=== PATIENT | female | born 1995 | race Caucasian/White ===

== ENCOUNTER 2018-12-15 14:17 | Inpatient (IN) | payer OTHER ==
[~2018-12-15] VITALS: Ht 152.4 cm; Wt 90.7 kg
--- NOTE | ~2018-12-15 | CON ---
[address] [address] CONSULTATION Name: YOSI WATTERS Room: [address] IN .R.#: [id number] Admission: 12/15/18 Attend Phys: Victorino Castillo DO Discharge: Date of : 93 Report #: [id number] THIS REPORT FOR: //name// CC: Vicotrino BRUNO physician/PCP DATE OF SERVICE: 12/16/2018 HISTORY OF PRESENT ILLNESS: This is a pleasant 23-year-old female with no significant past medical history who is presenting for right upper quadrant abdominal pain. The patient reports the pain began a few days back and is located in the right upper quadrant, nonradiating. The patient reports the pain is worse with eating and was not moving around and reports subjective sensation of fever and chills. The patient denies similar episodes in the past and has no other known medical problems. PAST SURGICAL HISTORY: Nonsignificant. PAST MEDICAL HISTORY: Nonsignificant. SOCIAL HISTORY: The patient denied smoking, alcohol or recreational drug use. FAMILY HISTORY: There is no family history of colon cancer or Banda related neoplasia. REVIEW OF SYSTEMS: Comprehensive 10-point review of systems is negative except for what is mentioned in the HPI. PHYSICAL EXAMINATION: VITAL SIGNS: Temperature 36.9, pulse rate 95, respirations 14, blood pressure 121/75. GENERAL: The patient is alert, awake, oriented x 3. HEENT: Pupils are equal, round, reactive to light and accommodation. Mucous membranes are moist. There is no congestion. LUNGS: Clear to auscultation bilaterally. CARDIOVASCULAR: Rate and rhythm regular, S1, S2 present. ABDOMEN: Soft. There is tenderness and mild guarding in the right upper quadrant region. EXTREMITIES: Warm, well perfused, no edema. LABORATORY DATA: Hemoglobin 11.1, hematocrit 33.4, platelet count 287. WBC count 10.9. Sodium 140, potassium 3.6, chloride 106, bicarbonate 25, BUN 8, creatinine 0.6, total bilirubin 1.5, AST 133, ALT 111, alkaline phosphatase 200. IMAGING: MRCP abdomen basically demonstrates a large gallstone in the gallbladder neck measuring 2.0 cm with gallbladder distention, gallbladder wall [facility] [address] [place] [address] CONSULTATION Name: YOSI WATTERS Room: [address] IN [facility]#: [id number] Admission: 12/15/18 Attend Phys: Victorino Castillo, Discharge: Date of : 93 Report #: [id number] thickening and pericholecystic edema consistent with acute cholecystitis. Curvilinear ____ the anterior wall of the gallbladder raises the possibility of gangrenous cholecystitis. No abnormal biliary ductal dilation. No evidence of choledocholithiasis. ASSESSMENT AND PLAN: Pleasant 23-year-old female who is presenting with severe right upper quadrant pain, found to have acute cholecystitis. Although the bilirubin is elevated, there is no evidence of acute biliary obstruction or choledocholithiasis. I would recommend surgical evaluation for cholecystectomy at this time. No endoscopic evaluation is warranted. Thank you for this consultation. By: [id number] Reveles MD /nt
[2018-12-15 14:37] VITALS: BP 153/89
[2018-12-15 14:45] LABS: URINE BILIRUBIN NEGATIVE (Negative); URINE BLOOD TRACE (Negative); URINE CLARITY CLEAR; URINE COLOR YELLOW; URINE GLUCOSE-RANDOM NEGATIVE (Negative); URINE KETONES NEGATIVE (Negative); URINE LEUKOCYTES-REFLEX NEGATIVE (Negative); URINE NITRITE-REFLEX NEGATIVE (Negative); URINE PROTEIN TRACE (Negative); URINE SPECIFIC GRAVITY >= 1.030 (1.005-1.030); URINE UROBILINOGEN 0.2 E.U./dl (0.2-1.0)
[2018-12-15 14:55] LABS: ABSOLUTE EOSINOPHILS 0.1 thou/uL (0.0-0.7); ABSOLUTE LYMPHOCYTES 1.2 thou/uL (0.8-5.3); ABSOLUTE NEUTROPHILS 12.5 thou/uL (1.6-8.1); BASOPHILS 0.2 %; EOSINOPHILS 0.8 %; HEMATOCRIT 37.8 % (37.0-47.0); HEMOGLOBIN 12.6 gm/dL (12.0-15.0); MCHC 33.3 g/dL (28.0-37.0); MCV 86.9 fL (80.0-100.0); MONOCYTES 6.8 %; MPV 8.3 fl. (7.2-11.1); NUCLEATED RBCS 0 /100WBC; PLATELET COUNT* 331 thou/uL (150-400); POLYS 84.2 %; RBC 4.35 mil/uL (4.20-5.00); RDW-CV 13.2 % (10.5-14.5); WBC 14.9 thou/uL (4.0-11.0)
[2018-12-15 15:12] LABS: PROTIME 10.2 Seconds (9.20-11.50)
[2018-12-15 15:18] LABS: CALCIUM 9.5 mg/dL (8.5-10.1); CREATININE 0.6 mg/dL (0.6-1.3); POTASSIUM 3.8 mmol/L (3.5-5.1)
[2018-12-15 15:23] LABS: ALBUMIN 3.3 g/dL (3.4-5.0); TOTAL BILIRUBIN 1.1 mg/dL (<0.1-1.0); TOTAL PROTEIN 8.2 g/dL (6.4-8.2)
[2018-12-15 17:38] VITALS: BP 122/68
[2018-12-15 18:08] VITALS: BP 126/92
--- NOTE | 2018-12-15 18:19 | NUR ---
PT ALERT AND ORIENTED. PT ADMITTED WITH ACUTE CHOLECYSTITIS. PT IS ON ROOM AIR. PULSES 2+. UP AD QUINN. BM TODAY. VOIDING WITHOUT ISSUE. PAIN MANAGED WITH PAIN MEDS. LT AC IV WITH NS AT 100 AND ZOSYN RUNNING. AFEBRILE AT THIS TIME. PT NPO. SURGERY SAW PT IN ROOM. FALL RISK PRECAUTIONS IN PLACE. HOURLY ROUNDING COMPLETED. WILL CONTINUE TO MONITOR.
[2018-12-15 21:30] VITALS: BP 138/86
[2018-12-16 04:00] VITALS: BP 157/86
--- NOTE | 2018-12-16 06:56 | NUR ---
PATIENT SLEPT PART OF THE NIGHT. PATIENT WAS GIVEN PAIN MEDICINE ONCE THIS SHIFT WITH GOOD RELIEF. PATIENT REMAINS NPO PER ORDERS. IV FLUIDS AND ANTIBIOTICS WERE GIVEN ORDERED. WILL CONTINUE TO MONITOR.
[2018-12-16 07:22] LABS: ABSOLUTE EOSINOPHILS 0.2 thou/uL (0.0-0.7); ABSOLUTE LYMPHOCYTES 1.1 thou/uL (0.8-5.3); ABSOLUTE MONOCYTES 0.8 thou/uL (0.0-1.2); ABSOLUTE NEUTROPHILS 8.9 thou/uL (1.6-8.1); BASOPHILS 0.2 %; EOSINOPHILS 1.5 %; HEMATOCRIT 33.4 % (37.0-47.0); HEMOGLOBIN 11.1 gm/dL (12.0-15.0); LYMPHOCYTES 9.9 %; MCH 29.2 pg (26.0-34.0); MCHC 33.3 g/dL (28.0-37.0); MCV 87.5 fL (80.0-100.0); MONOCYTES 7.3 %; MPV 8.3 fl. (7.2-11.1); NUCLEATED RBCS 0 /100WBC; PLATELET COUNT* 287 thou/uL (150-400); POLYS 81.1 %; RBC 3.82 mil/uL (4.20-5.00); RDW-CV 13.3 % (10.5-14.5); WBC 10.9 thou/uL (4.0-11.0)
[2018-12-16 07:35] LABS: ALBUMIN 2.7 g/dL (3.4-5.0); CALCIUM 8.4 mg/dL (8.5-10.1); CREATININE 0.6 mg/dL (0.6-1.3); POTASSIUM 3.6 mmol/L (3.5-5.1); TOTAL BILIRUBIN 1.5 mg/dL (<0.1-1.0)
[2018-12-16 07:55] VITALS: BP 129/72
--- NOTE | 2018-12-16 14:03 | EKG ---
[place] [address] ELECTROCARDIOGRAM REPORT Name: YOSI WATTERS Room: [address] ADM IN M.R.#: [id number] Admission: 12/15/18 Attend Phys: Victorino Castillo DO Discharge: Date of : 93 Report #: [id number] THIS REPORT FOR: //name// [facility] ED Test Date: 2018-12-15 Test Time: 15:11:12 Pat Name: YOSI WATTERS Department: Room: [facility] Gender: F Short Story Writer: GENA : 1995 Requested By: Jocelynn Dimas Order Number: [id number] MD: Ja Gonzales Measurements Intervals [place] Rate: 98 P: 13 NV: 148 QRS: 6 QRSD: 83 T: 14 QT: 324 QTc: 414 Interpretive Statements Sinus rhythm No previous ECG available for comparison Electronically Signed On 12-16-2018 14:03:01 CDT by Ja Gonzales [email or web address] <ELECTRONICALLY SIGNED> By: Ja Gonzales MD, [facility] 12/16/18 1403 1511 1511 Ja Gonzales MD, FACC /EPI
--- NOTE | 2018-12-16 15:54 | NUR ---
ENGINE MAINTENANCE MECHANIC SPOKE TO THE PATIENT TO DISCUSS DISCHARGE PLANNING NEEDS. PATIENT IS ALERT, ORIENTED, ACTIVE AND INDEPENDENT. PATIENT'S EMPLOYER FAXED FMLA PAPERWORK TO THE HOSPITAL, AND REQUEST THAT THE PAPERWORK BE COMPLETED BY THE PHYSICIAN, AND NURSING IS AWARE. CM WILL REMAIN AVAILABLE TO ASSIST AND FOLLOW NEEDED.
[2018-12-16 16:00] VITALS: BP 121/75
--- NOTE | 2018-12-16 17:54 | NUR ---
PATIENT RESTING IN BED. PATIENT IS UP AD QUINN IN ROOM. PATIENT HAS HAD COMPLAITS OF ABDOMINAL PAIN X 1 TREATED WITH MORPHINE AND ZOFRAN. PATIENT IS NPO. PATIENT HAD MRCP THIS AM WITHOUT INCIDENT. PATIENT IS SCHEDULED FOR LAP JUSTINE TOMORROW. PATIENT DENIES ANY NEEDS AT THIS TIME. CALL LIGHT WITHIN REACH. WILL CONTINUE TO MONITOR.
[2018-12-16 22:00] VITALS: BP 121/73
--- NOTE | 2018-12-17 05:55 | NUR ---
PATIENT SLEPT MOST OF THE NIGHT. IV FLUIDS AND IV ANTIBIOTICS WERE GIVEN ODERED. PATIENT HAD NO COMPLAINTS OF PAIN OR NAUSEA. PATIENT REMAINS NPO FOR SURGERY TODAY. WILL CONTINUE TO MONITOR.
[2018-12-17 07:40] VITALS: BP 146/85
[2018-12-17 09:50] LABS: ABSOLUTE EOSINOPHILS 0.3 thou/uL (0.0-0.7); ABSOLUTE LYMPHOCYTES 1.6 thou/uL (0.8-5.3); ABSOLUTE MONOCYTES 0.6 thou/uL (0.0-1.2); BASOPHILS 0.3 %; EOSINOPHILS 2.6 %; HEMATOCRIT 32.1 % (37.0-47.0); LYMPHOCYTES 16.9 %; MCH 29.8 pg (26.0-34.0); MCHC 34.3 g/dL (28.0-37.0); MCV 86.8 fL (80.0-100.0); MONOCYTES 6.7 %; NUCLEATED RBCS 0 /100WBC; PLATELET COUNT* 306 thou/uL (150-400); POLYS 73.5 %; RBC 3.69 mil/uL (4.20-5.00); WBC 9.5 thou/uL (4.0-11.0)
[2018-12-17 10:02] LABS: ALBUMIN 2.5 g/dL (3.4-5.0); CALCIUM 8.1 mg/dL (8.5-10.1); CREATININE 0.5 mg/dL (0.6-1.3); POTASSIUM 3.5 mmol/L (3.5-5.1); TOTAL BILIRUBIN 1.7 mg/dL (<0.1-1.0); TOTAL PROTEIN 6.8 g/dL (6.4-8.2)
[2018-12-17 11:21] VITALS: BP 146/85
--- NOTE | 2018-12-17 18:31 | NUR ---
PATIENT RESTING IN BED. PATIENT HAD JUSTINE DRAIN PLACED THIS AFTERNOON IN SURGERY. PATIENT RETURNED THIS EVENING. PATIENT HAS OXYGEN ON AT 2L/NC AND CONTINUOUS O2 SAT MONITOR. PATIENT DENIES ANY PAIN AT THIS TIME, HAD DILAUDID IN PACU PRIOR TO TRANSFER BACK TO ROOM. PATIEN TIS TOLERATING CLEAR LIQUID DIET. CALL LIGHT WITHIN REACH. WILL CONTINUE TO MONITOR.
[2018-12-17 20:00] VITALS: BP 135/65
[2018-12-18] VITALS: BP 133/72
[2018-12-18 04:12] LABS: HEMATOCRIT 32.3 % (37.0-47.0); HEMOGLOBIN 10.9 gm/dL (12.0-15.0); MCH 29.3 pg (26.0-34.0); MCHC 33.6 g/dL (28.0-37.0); MPV 8.4 fl. (7.2-11.1); NUCLEATED RBCS 0 /100WBC; PLATELET COUNT* 366 thou/uL (150-400); RBC 3.71 mil/uL (4.20-5.00); RDW-CV 12.7 % (10.5-14.5); WBC 10.9 thou/uL (4.0-11.0)
[2018-12-18 04:21] LABS: ALBUMIN 2.3 g/dL (3.4-5.0); CALCIUM 8.8 mg/dL (8.5-10.1); CREATININE 0.6 mg/dL (0.6-1.3); POTASSIUM 4.3 mmol/L (3.5-5.1); TOTAL PROTEIN 6.8 g/dL (6.4-8.2)
[2018-12-18 04:25] VITALS: BP 125/69
[2018-12-18 04:34] LABS: ABSOLUTE LYMPHOCYTES 1.1 thou/uL (0.8-5.3); ABSOLUTE MONOCYTES 0.8 thou/uL (0.0-1.2); PLATELET ESTIMATE ADEQUATE
--- NOTE | 2018-12-18 05:40 | NUR ---
ASSUMED CARE AT 1930. PATIENT RESTING IN BED THROUGHOUT SHIFT. VOIDED PER TOILET. IVF AND IVABX CONTINUE PER LT HAND. C/O PAIN, GIVEN HYDROCODONE WITHOUT RELIEF. GIVEN MS IV WITH RELIEF. THIS REPORTED TO PIERCING MILL OPERATOR. PIERCING MILL OPERATOR REMOVED SOME OF THE DRESSINGS. LAP SITES C/D/I. JOSE DRAINS PINK FLUID. T TUBE DRAINS PINK FLUID. ENCOURGED TCDB. SLEPT WELL. CALL LITE IN REACH. HOURLY ROUNDS CONTINUE. TOLERATING CLEAR LIQUIDS.
[2018-12-18 09:28] VITALS: BP 144/80
--- NOTE | 2018-12-18 13:09 | OP ---
[address] [address] OPERATIVE REPORT Name: YOSI WATTERS Room: [address] IN M.R.#: [id number] Admission: 12/15/18 Attend Phys: Victorino Castillo DO Discharge: Date of : 93 Report #: [id number] THIS REPORT FOR: //name// CC: Victorino BRUNO physician/PCP DATE OF SERVICE: 12/17/2018 PREOPERATIVE DIAGNOSES: Acute cholecystitis with cholelithiasis. POSTOPERATIVE DIAGNOSES: Acute gangrenous cholecystitis with cholelithiasis. PROCEDURE: Laparoscopic cholecystectomy converted to diagnostic laparoscopy with laparoscopic cholecystostomy tube placement. SURGEON: Victorino Castillo DO. MACHINE TANK OPERATOR: Jonathan Colbert DO, PGY3, resident SECOND LOGGING SUPERVISOR: Mimi Palma ANESTHESIA: General endotracheal. ESTIMATED BLOOD LOSS: Less than 20 mL. COMPLICATIONS: None. DESCRIPTION OF PROCEDURE: After obtaining proper consents and discussing risks and complications with the patient, she was taken to the operating room and laid on the supine position, administered general endotracheal anesthetic. She was then prepped and draped in the usual sterile fashion. A timeout was performed that confirmed the appropriate patient and procedure. Preoperative antibiotics had been given. SCDs were in place. We then made a small supraumbilical skin incision with #11 scalpel blade. This was carried down through the skin and the subcutaneous tissue using electrocautery for hemostasis. Once the fascia was encountered, it was incised along the midline, grasped and elevated with Armando clamps. The peritoneum was then bluntly opened using a hemostat. A finger was placed inside the peritoneal cavity to assure that there were no jesus-incisional adhesions. Next, 2-0 Vicryl sutures were placed in a nylwch-fe-iujfz fashion to secure the Carlie trocar, which was then inserted and insufflation was begun. Once insufflation was complete, full visual inspection of the anterior abdominal organs was performed. This revealed a fatty appearing liver. The gallbladder was completely surrounded by omental adhesions. We then placed the patient in reverse Trendelenburg position. A 10 mm trocar was placed in the subxiphoid position. Two 5 mm trocars were placed in the right flank. I was then able to bluntly dissect away some of the omentum so we could identify [place] [address] OPERATIVE REPORT Name: YOSI WATTERS Room: [address] IN [facility]#: [id number] Admission: 12/15/18 Attend Phys: Victorino Castillo, Discharge: Date of : 93 Report #: [id number] The gallbladder did appear mildly gangrenous and was quite tense, so we did elect to place an aspiration needle into the gallbladder and we aspirated 180 mL of bilious fluid. Once this was done, I was able to have my trust manager assistant grasp and elevate the gallbladder. I was then able to take down the omental adhesions all the way down to Yunior's pouch. Once I could grasp Yunior's pouch, I attempted to dissect out the hepatoduodenal ligament; however, this area was quite firm and after quite some time of trying to dissect it free, I was still unable to identify any structures such as the cystic duct, common bile duct, common hepatic duct or cystic artery and instead of causing problem or causing a bile duct injury, I elected at this point to place a cholecystostomy tube to allow the gallbladder to drain and then come back in 6 weeks to remove that which I discussed with the patient as a possibility after viewing her MRI. So at this point, we prepared a 12-Bermudian pigtail catheter on the back table. A small rivas was made in the abdominal wall. We then advanced the pigtail catheter into the gallbladder. The needle was removed. The pigtail catheter was deployed in the appropriate way. We then aspirated and flushed the gallbladder out to remove any debris. I then placed a 15-Bermudian Bam-Arroyo drain through one of the right upper quadrant trocar sites. This was sutured in place using 3-0 nylon suture. I then stopped the insufflation. All air was released and the trocars were all removed under direct vision. The pigtail catheter was secured in place with a StatLock dressing. The wounds at the umbilical fascia were then closed using the 2 previously placed 0 Vicryl sutures plus an additional 0 Vicryl suture. Skin incisions were all closed using 4-0 Monocryl subcuticular stitches. Sterile dressings were placed. The patient was then awakened in the operating room and transported to recovery room in stable condition. <ELECTRONICALLY SIGNED> By: Victorino Castillo DO 12/18/18 1309 1637 [id number] Castillo DO /nt
[2018-12-18 16:30] VITALS: BP 134/75
--- NOTE | 2018-12-18 18:32 | NUR ---
ASSUMED CAERE OF PATIENT AT APPROX 0730. ALERT AND ORIENTED X4. ASSESSMENT COMPLETED AND CHARTED. VSS ON ROOM AIR. FLUIDS AND ANTIBIOTICS INFUSED ORDERED. PAIN MANAGED WITH MORPHINE AND HYDROCODONE. PATIENT UP WITH STAND BY ASSIST TO THE BATHROOM. RESTED IN BED THROUGHOUT SHIFT. NO COMPLAINTS OF NAUSEA AND TOLERATING DIET WELL. FALL PRECAUTIONS IN PLACE. CALL LIGHT WITHIN REACH. NURSING WILL CONTINUE TO MONITOR.
[2018-12-18 19:40] VITALS: BP 126/75
[2018-12-19] VITALS: BP 146/83
[2018-12-19 04:00] VITALS: BP 155/96
--- NOTE | 2018-12-19 04:42 | NUR ---
PATIENT HAS REMAINED ALERT AND ORIENTED X 4 THROUGHOUT THE SHIFT AND RESTING AT INTERVALS ON HOURLY ROUNDS. UP TO BR WITH CGA. NEEDS A LOT OF ENCOURAGEMENT TO COMPLETE TASKS WITHOUT PHYSICIAL ASSIST. WAS RESTING QUIETLY WITH ADEQUATE PAIN CONTROL AND NO NASUEA UNTIL 0200. NAUSEA AT THAT TIME WITH SMALL AMOUNT EMESIS. HAD A SECOND EPISODE NAUSEA WITH SMALL EMESIS 2 HOURS LATER. SPLINTING OF ABDOMEN ENCOURAGED. STATES HAS PASSED SOME GAS. DRESSINGS OVER DRAIN SITES CLEAN AND DRY. NO CHANGE IN LAP SITES. O2 RE-APPLIED AT 2L/MIN FOR SAT 88-89% AFTER IV PAIN MEDICATION. RECHECK BY RT AT THIS TIME 97%. OTHER VITAL SIGNS STABLE. CONTINUE TO MONITOR AND PROVIDE SUPPORT.
[2018-12-19 04:44] LABS: ABSOLUTE EOSINOPHILS 0.2 thou/uL (0.0-0.7); ABSOLUTE LYMPHOCYTES 2.3 thou/uL (0.8-5.3); ABSOLUTE MONOCYTES 0.5 thou/uL (0.0-1.2); ABSOLUTE NEUTROPHILS 4.8 thou/uL (1.6-8.1); BASOPHILS 0.5 %; EOSINOPHILS 2.9 %; HEMATOCRIT 29.3 % (37.0-47.0); HEMOGLOBIN 10.1 gm/dL (12.0-15.0); LYMPHOCYTES 29.4 %; MCH 29.8 pg (26.0-34.0); MCHC 34.4 g/dL (28.0-37.0); MCV 86.6 fL (80.0-100.0); MONOCYTES 6.6 %; MPV 8.3 fl. (7.2-11.1); NUCLEATED RBCS 0 /100WBC; PLATELET COUNT* 385 thou/uL (150-400); POLYS 60.6 %; RBC 3.38 mil/uL (4.20-5.00); WBC 7.9 thou/uL (4.0-11.0)
[2018-12-19 04:53] LABS: CALCIUM 8.1 mg/dL (8.5-10.1); CREATININE 0.5 mg/dL (0.6-1.3)
[2018-12-19 04:56] LABS: POTASSIUM 3.1 mmol/L (3.5-5.1)
[2018-12-19 08:00] VITALS: BP 133/87
[2018-12-19 12:31] LABS: ALBUMIN 2.4 g/dL (3.4-5.0); CALCIUM 8.6 mg/dL (8.5-10.1); CREATININE 0.6 mg/dL (0.6-1.3); POTASSIUM 3.3 mmol/L (3.5-5.1); TOTAL BILIRUBIN 0.3 mg/dL (<0.1-1.0)
[2018-12-19 17:04] VITALS: BP 137/88
--- NOTE | 2018-12-19 18:52 | NUR ---
ASSUMED CARE OF PATIENT AT APPROX 0730. ALERT AND ORIENTED X4. ASSESSMENT COMPLETED AND CHARTED. VSS ON ROOM AIR. PATENTS PAIN MANAGED WITH HYDROCODONE THIS MORNING. PATIENT HAD NAUSEA AND VOMITING, PAIN MEDICATION ORDERS CHANGED BY DR WHITE; ADDED TORADOL AND REMOVED HYDROCODONE. MORPHINE GIVEN FOR PAIN WITH RELIEF. ZOFRAN GIVEN FOR NAUSEA WITH RELIEF. FLUIDS AND ANTIBIOTICS INFUSED ORDERED. ENCOURAGED PATIENT TO TRY TO EAT MORE, OFFERED LEMON TRIBAL SODA AFTER GIVING ZOFRAN AT DINNER TIME. UP STAND BY ASSIST TO THE BATHROOM. HOURLY ROUNDS COMPLETED. CALL LIGHT WITHIN REACH. NURSING WILL CONTINUE TO MONITOR.
[2018-12-19 19:55] VITALS: BP 131/90
[2018-12-20] VITALS: BP 144/93
[2018-12-20 04:00] VITALS: BP 135/89
--- NOTE | 2018-12-20 05:16 | NUR ---
PATIENT HAS REMAINED ALERT AND ORIENTED X 4 THROUGHOUT THE SHIFT AND RESTING QUIETLY ON HOURLY ROUNDS. MUCH IMPROVED THIS SHIFT. TOLERABLE ABDOMINAL DISCOMFORT WITHOUT NEED FOR PAIN MEDICATION. NO NAUSEA. GETTING UP AND DOWN TO BR INDEPENDENTLY. PASSING GAS. VITAL SIGNS STABLE. CONTINUE TO MONITOR.
[2018-12-20 08:00] VITALS: BP 137/92
[2018-12-20 16:00] VITALS: BP 138/85
[2018-12-20 16:01] VITALS: BP 137/92
[2018-12-20] MEDS ORDERED: NORCO 5-325 TA1 EAC1 PO (16:28)
[2018-12-20 16:39] VITALS: BP 137/92
--- NOTE | 2018-12-20 16:41 | NUR ---
ANUP met with pt to discuss dc plan and the recommendation/order for HH RN for drain care. Pt in agreement with plan and did not have a preference of HH agency. [facility] out of service area. [facility] accepted referral; pt in agreement with plan. [facility]UP faxed [facility] HH referral and order [phone] fax [phone]
--- NOTE | 2018-12-20 18:54 | NUR ---
PT DISCHARGED AND LEFT UNIT BY WHEELCHAIR WITH NURSING STAFF AT 1854 TO HOME WITH HOME HEALTH. T TUBE AND JOSE DRAIN INTACT UPON DISCHARGE AND PT KNOWS HOW TO DRAIN AND CHART DRAINAGE. IV OUT. PAPER PRESCRIPTION AND CARE NOTE GIVEN. PT STABLE UPON DISCHARGE.
== END 2018-12-20 18:54 | disposition home health service (06) | DRG 422 ==
LOC: M.ERS 14:17 → M.TBA-ER 16:52 → M.ORTHSURG 16:52
PROVIDERS: Nurse Practitioner Family; ADMIT Surgery
PROC: 0WJG4ZZ Inspection of Peritoneal Cavity, Percutaneous Endoscopic Approach (ICD-10-PCS; principal; 2018-12-17)
PROC: 0F9440Z Drainage of Gallbladder with Drainage Device, Percutaneous Endoscopic Approach (ICD-10-PCS; principal; 2018-12-17)
DX: K80.12 Calculus of gallbladder with acute and chronic cholecystitis without obstruction (principal); K82.A1 Gangrene of gallbladder in cholecystitis; Z79.899 Other long term (current) drug therapy; Z79.2 Long term (current) use of antibiotics

== ENCOUNTER → 2019-01-31 | Day surgery (SDC) | payer OTHER ==
[~2019-01-31] MED LIST: IBUPROFEN 200200 M1 PO; NORCO 5-325 TA1 EAC1 PO
--- NOTE | ~2019-01-31 | OP ---
[address] [address] OPERATIVE REPORT Name: YOSI WATTERS Room: [facility].#: [id number] Admission: 01/31/19 Attend Phys: Victorino Castilol DO Discharge: Date of : 93 Report #: [id number] THIS REPORT FOR: //name// CC: Victorino Conner DATE OF SERVICE: 01/31/2019 REFERRING PHYSICIAN: None. PREOPERATIVE DIAGNOSES: Acute cholecystitis with cholelithiasis with a previous history of an attempted laparoscopic cholecystectomy, which was aborted and a cholecystostomy tube was placed. POSTOPERATIVE DIAGNOSES: Acute cholecystitis with cholelithiasis with a previous history of an attempted laparoscopic cholecystectomy, which was aborted and a cholecystostomy tube was placed. PROCEDURE: Laparoscopic cholecystectomy, removal of cholecystostomy tube, intraoperative cholangiogram, and use of immunofluorescence imaging. SURGEON: Victorino Castillo DO INDUSTRIAL LOCOMOTIVE OPERATOR: Dony Be DO, PGY3, resident. SECOND INTERFACE DESIGNER: Alonso Bell DO, PGY3, resident. ANESTHESIA: General endotracheal. ESTIMATED BLOOD LOSS: 30 mL. COMPLICATIONS: None. DESCRIPTION OF PROCEDURE: After obtaining proper consents and discussing risks and complications with the patient and her family, she was taken to the operating room and laid on the supine position, administered general endotracheal anesthetic. She was then prepped and draped in the usual sterile fashion. A timeout was performed. We confirmed the appropriate patient and procedure. Preoperative antibiotics had been given. SCDs were in place. We then made a small supraumbilical skin incision. This was carried down through the skin into the subcutaneous tissue using electrocautery for hemostasis. Once the fascia was encountered, it was incised along the midline, grasped and elevated with [facility] clamps and divided further. The peritoneum was then bluntly opened using a hemostat. 2-0 Vicryl sutures were then placed in a fdxfju-lc-opasu fashion to secure the Carlie trocar, which was then inserted and insufflation was begun. Once insufflation was complete, [place] [address] OPERATIVE REPORT Name: YOSI WATTERS Room: [facility]..#: [id number] Admission: 01/31/19 Attend Phys: Victorino Castillo, Discharge: Date of : 93 Report #: [id number] of the anterior abdominal organs was performed. This revealed a tract from where the cholecystostomy tube had been that by the way had been removed after the patient was administered general anesthesia. The tract was identified. There were some adhesions of omentum and transverse colon to the gallbladder as well. There were also some adhesions to the liver and there was noted to be some adhesions to the supraumbilical incision just lateral to the umbilical port. We then placed the patient in reverse Trendelenburg position and rotated her to the left. Three more 5 mm trocars were placed, one in the subxiphoid position and two in the right upper quadrant. We were then able to take down all of the adhesions using blunt dissection as well as electrocautery. We then grasped and elevated the gallbladder. The adhesions of the transverse colon and omentum to the gallbladder were taken down. The gallbladder was quite long and at its lower aspect had a very large stone impacted in the neck of the gallbladder. The gallbladder was decompressed distal to the stone. We then used immunofluorescence imaging to attempt to visualize the common hepatic duct and common bile duct as well as the cystic duct. We were unable to visualize the cystic duct immediately, but we were able to identify the common hepatic duct and common bile duct. I then began dissecting the hepatoduodenal ligament down from the gallbladder. This was quite difficult as the large 2 cm stone was impacted in the neck of the gallbladder. I was able to continue this dissection, which was quite tedious and took over an hour to dissect out what appeared to be the cystic duct; however, it was quite dilated. We had used immunofluorescence imaging off and on during this entire procedure to assure no injury to the common hepatic duct and common bile duct. I was still unsure of the anatomy, so we elected to perform an intraoperative cholangiogram using a Marc clamp and Marc catheter. I was able to go across the lower portion of the gallbladder just below the large gallstone and placed a Marc clamp and then cholangiography was performed and this confirmed that we were dissecting the cystic duct. We could easily see the common hepatic duct, common bile duct, hepatic radicles and the duodenum and there were no filling defects identified. Once I had confirmed the area that we were dissecting was the cystic duct, I then removed the cholangiogram catheter. We then continued dissecting this area and then placed 3 clips proximally and 1 clip distally on the cystic duct. I then continued dissecting the gallbladder until we were able to identify the cystic artery as it coursed directly into the gallbladder. This was clipped proximally and distally and then divided between clips. We then continued to take the gallbladder off the liver using electrocautery and blunt dissection. Once the gallbladder was completely removed, it was placed into an Endopouch. We then checked the cystic duct and cystic artery stumps for any leak or bleeding and also the liver bed. We found no leak or bleeding. We copiously irrigated the area. We then placed the patient back into the supine position and the insufflation was stopped, all air was released. Trocars were removed. We then removed the gallbladder through the umbilical incision. We enlarged the fascial incision in order to remove the gallbladder. The fascia was then closed using interrupted 0 Vicryl sutures in a wbbfev-ve-ybjuk fashion. The subcutaneous tissues were injected with 0.5% Marcaine [place] [address] OPERATIVE REPORT Name: JANENEYOSI TATIANA Room: [facility]#: [id number] Admission: 01/31/19 Attend Phys: Victorino Castillo DO Discharge: Date of : 89 Report #: [id number] then the skin incisions were all closed using 4-0 Monocryl subcuticular stitches. Mastisol, Steri-Strips, sterile OpSite and pressure dressings were placed. The patient was awakened in the operating room and transported to recovery room in stable condition. By: 1205 [id number] Castillo DO /nt
[2019-01-31 09:14] LABS: HEMATOCRIT 41.8 % (37.0-47.0); HEMOGLOBIN 14.4 gm/dL (12.0-15.0)
--- NOTE | 2019-02-02 17:06 | PATH ---
[address] [address] PATHOLOGY RPT PROCEDURE Name: JANENESONIYA SIMPSON Room: [facility]..#: [id number] Admission: 01/31/19 Date of : [birth year] Discharge: Report #: [id number] Path Case #: [id number] [facility] Accession Number: [id number] . 01 Material submitted: . gallbladder - GALLBLADDER AND CONTENTS . 01 Clinical history: . Cholecystitis and cholelithiasis . 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 - Benign serosal lymph node. See comment. (RADHA:[facility]; 02/02/2019) QTP/02/02/2019 . 02 Comment: In addition to the usual inflammatory changes seen in the histologic sections, there are foreign body type granulomata including large cystic ones showing palisaded histiocytes which are attributable to the recent prior cholecystotomy tube placed (per discharge summary dated 12/20/[address] Castillo). (RADHA:[facility]; 02/02/2019) . 02 Electronically signed: . Zacarias Gallo MD, Pathologist NPI- [id number] . 01 Gross description: . Received in formalin labeled "Soniya Pastrana, gallbladder and contents," is an irregular, partially disrupted gallbladder measuring 8.1 x 2.5 x 2.3 cm in greatest dimensions. The serosal surface is shaggy to partially disrupted and larios-cramer to hemorrhagic in appearance. A defect is noted in the suspected hepatic surface, measuring 0.9 x 0.5 cm and extending to within 4.1 cm of the infundibulum. Also noted on the serosal surface is a larios-cramer possible lymph node measuring 1.1 x 0.7 x 0.6 cm. The suspected hepatic surface is inked black. Opening the specimen reveals a smooth to granular, pale cramer to dark brown mucosa partially stippled in pale yellow highlights and measuring up to 0.2 cm in thickness, with a gallbladder wall thickness of up to 0.3 cm. A single yellow, granular calculus is firmly lodged within the specimen, measuring 2.4 cm in maximum dimension. Mucosal polyps are not identified grossly. Sectioning through the suspected fundal aspect reveals a firm, pale yellow-cramer to dark brown possible nodule measuring 1.6 x 1.4 x 1.0 cm. A segment of smooth, larios-cramer possible mucosa extends from the distal aspect of the possible nodule, measuring 2.0 x 1.0 x 0.5 cm (inked yellow). [place] [address] PATHOLOGY RPT PROCEDURE Name: SONIYA PASTRANA Room: [facility] M.R.#: [id number] Admission: 01/31/19 Date of : [birth year] Discharge: Report #: [id number] Path Case #: [id number] submitted representatively as follows: . A1: Solar Installation Technician sections of the infundibulum and body, to representatively include the hepatic surface defect A2: Entire bisected possible lymph node A3-A6: Entire quadrisected suspected fundal aspect possible nodule A7: Entire trisected possible mucosa distal to suspected fundus (DAC; 02/01/2019) XDC/XDC . 02 Pathologist provided ICD-10: K80.12, K82.4 . 02 CPT . 051904 Specimen Comment: A courtesy copy of this report has been sent to Specimen Comment: [phone], . Specimen Comment: Report sent to / DR YAN Performed at: 01 [facility] [address], [place], [place] [id number] MD Rigoberto Buenrostro MD Phone: [phone] Performed at: 02 [facility] [place] [address], [place], [place] [id number] MD Zacarias Gallo MD Phone: [phone]
== END | disposition home or self-care (01) ==
LOC: M.SUR 08:17
PROVIDERS: Surgery
DX: K80.12 Calculus of gallbladder with acute and chronic cholecystitis without obstruction (principal); Z79.899 Other long term (current) drug therapy; Z88.8 Allergy status to other drugs, medicaments and biological substances